=== PATIENT | female | born 1940 | race Caucasian/White ===

== ENCOUNTER 2016-07-23 16:41 | Emergency (ER) | payer OTHER ==
[2016-07-23] MEDS ORDERED: NS 1,000 ML IV ONE ×2 (17:33→19:55)
--- NOTE | 2016-07-23 17:43 | UCPHY ---
H & P Patient Type: New Chief Complaint Nursing Narrative: N/V x 4 days in a diabetic who is unable to eat or drink. AMS since this AM. Last sugar this AM was 147. Time Seen by Provider: 07/23/16 17:32 HPI/ROS: CHIEF COMPLAINT: Nausea and vomiting HISTORY OF PRESENT ILLNESS: The patient is a 75-year-old female with history of type II diabetes, who presents with 5 days of nausea and vomiting. The patient is visiting from out [place], [place]. She has been here for 2 weeks. Before she left, her was ill with some sort of illness ultimately diagnosis pneumonia. Course, she has not seen him for 2 weeks. The patient has not been able to keep down food, and very limited amounts of water. She reports an intermittent headache that comes and goes. Today she complained of chills. The patient reports productive cough that has been ongoing for quite sometime. The patient's family states the patient seems particularly run down. She is more weak compared to baseline. The patient additionally notes some left lower quadrant pain, she states she has not had a bowel movement recently, but also has had poor p.o. intake She denies fever, sweats, or urinary complaints. No diarrhea. REVIEW OF SYSTEMS: Constitutional: No fever, no chills. Eyes: No discharge. ENT: No sore throat. Cardiovascular: No chest pain, no palpitations. Respiratory: Cough, dry. No shortness of breath, or wheezing. Gastrointestinal: Nausea vomiting, no diarrhea. Genitourinary: No hematuria or frequency. Musculoskeletal: No back pain. Skin: No rashes. Neurological: No headache. 10 point ROS otherwise negative Source: Patient Exam Limitations: No limitations - Personal History Current Tetanus/Diphtheria Vaccine: Unsure (No diarrhea) - Medical/Surgical History Hx Asthma: No Hx Chronic Respiratory Disease: Yes Hx Diabetes: Yes Hx Cardiac Disease: No Hx Renal Disease: No Hx Cirrhosis: No Hx Alcoholism: No Hx HIV/AIDS: No Hx Splenectomy or Spleen Trauma: No Other PMH: Diabetes, fibromyalgia, pulmonary hypertension - Family History Significant Family History: No pertinent family hx - Social History Smoking Status: Never smoked Alcohol Use: None Drug Use: None - Physical Exam Exam: General Appearance: Alert, no distress. Afebrile. Normal phonation. No respiratory distress. Eyes: Pupils equal and round no pallor or injection. No icterus ENT, Mouth: Dry mucous membranes, No coating on mucosa, no thrush. Pharynx without erythema or exudate. TM Clear. Neck: No adenopathy. Supple. No JVD. Trachea in midline. Respiratory: Dullness left base. Diminished breath sounds at right base, without dullness. there are rales to right mid lung. Rales left lower lung anteriorly. Cardiovascular: Tachycardic, no murmurs or rubs. Abdomen: Soft mild tender to the LUQ and left abdomen, no masses, bowel sounds normal. Neurological: Ox3. No motor weakness. Sensation intact. Gait nl. The patient is oriented to person, place, date, and time and purpose, season. Skin: Warm and dry, no rashes. Musculoskeletal: No joint swelling. Extremities: No edema. Homans sign negative. No cords. Psychiatric: Normal affect. Patient is oriented X 3, there is no agitation. Constitutional: Initial Vital Signs Temperature (C) 36.3 C 07/23/16 16:55 Heart Rate 105 H 07/23/16 16:55 Respiratory Rate 18 07/23/16 16:55 Blood Pressure 158/111 H 07/23/16 16:55 O2 Sat (%) 93 07/23/16 16:55 O2 Delivery Mode Room Air Allergies/Adverse Reactions: morphine Allergy (Verified 07/23/16 16:53) Home Medications: Medication Instructions Recorded Baclofen 07/23/16 Chlorthalidone 07/23/16 Chlorzoxazone 07/23/16 Farxiga 07/23/16 Fenofibrate 07/23/16 Janumet 50-1,000 mg Tablet 07/23/16 Letairis 07/23/16 Levothyroxine 07/23/16 Lyrica 07/23/16 Montelukast Sodium 07/23/16 PRILOSEC 07/23/16 Propranolol HCl 07/23/16 Restora Capsule 07/23/16 SAVELLA 07/23/16 Spironolactone 07/23/16 Trulicity 07/23/16 Vytorin 10-10 mg Tablet 07/23/16 Medical Decision Making - Diagnostics EKG Interpretation: The 12 lead EKG was interpreted by myself. See hard copy and/or "tracemaster" electronic copy for interpretation: Nonspecific T abnormalities, V3-V6. Imaging: Imaging Impressions Chest X-Ray 07/23/16 17:32 Impression: Eventration/elevation, right hemidiaphragm. Otherwise normal.. Abdomen/Pelvis CT 07/23/16 18:28 Impression: 1. Negative non-contrast CT examination of the urinary system. 2. Minimal sigmoid diverticulosis without features of acute diverticulitis. 3. Small hiatal hernia. 4. Right renal cyst. Results called to Dr. Surya Michaud at the time of the interpretation. Attention: This CT examination is specifically designed to evaluate patients who are clinically suspected of having acute obstructive uropathy. This examination does not use radiographic contrast, and as such, provides only a limited evaluation of the abdomen, pelvis and retroperitoneum. If there is further clinical suspicion for pathological conditions other than obstructive uropathy, a complete CT evaluation of the abdomen and pelvis utilizing intravenous, oral, and rectal contrast should be considered. Films reviewed, by me on PACS ED Course/Re-evaluation: The patient is a 75-year-old female with history of type II diabetes who presents with nausea and vomiting for the past 4 days. The patient is unable to keep down POs. On exam she signs of dehydration as well as, lung findings as well as has some left lower quadrant tenderness. She has not had a bowel movement for a few days. The patient has an ongoing cough that is productive in nature. On exam patient has diminished breath sounds at the bases with rales at the mid lung. Plan to check labs for electrolyte abnormality. Chest x-ray was ordered to rule out pneumonia. IV was established, patient received fluids and Zofran. I viewed the X-ray of the chest myself on the PACS system. X-ray shows: Elevated right hemidiaphragm. No pneumonia. No cardiomegaly. Please see the full radiology report in the imaging section. I discussed findings with the patient and her family. They agree with the plan to proceed with CT. Patient has slightly elevated WBC. Her CO2 is critical at 8L. Lactic acid however was normal at 1.0. CT results were phoned to me by the radiologist, Dr. Grider. CT is negative. Please see imaging section for full report. Laboratory studies show hemoconcentration with elevated hemoglobin 9for someone from the [place] as well as urinalysis compatible with severe dehydration without any signs of infection Plan to admit the patient, family specifies Good [facility] The patient received 1000mg Tylenol PO. I spoke to the hospitalist. The patient will be directly admitted at [facility]. She was transferred there emergently via ambulance. The hospitalist requests Rocephin 1 g IV. Plan to repeat BMP and repeat lactic acid. The follow-up basic electrolytes showed the following: Potassium down to 2.6 Calcium down to 5.6 CO2 changed from 8 down to 7. The above electrolytes are evaluated after approximately 2 L of IV normal saline. Differential Diagnosis: Diagnostic considerations include, but are not limited to, the following: URI, sinusitis, pharyngitis, otitis media, pneumonia, Gastroenteritis, dehydration, diverticulitis, cholecystitis, appendicitis, gastritis, food poisoning, bacterial dysentery - Data Points Laboratory Results: Laboratory Results 07/23/16 16:56 07/23/16 20:20 07/23/16 07/23/16 07/23/16 20:20 20:20 19:13 WBC RBC Hgb Hct MCV MCH MCHC RDW Plt Count MPV Neut % (Auto) Lymph % (Auto) [place] % (Auto) Eos % (Auto) Baso % (Auto) Nucleat RBC Rel Count Absolute Neuts (auto) Absolute Lymphs (auto) Absolute Monos (auto) Absolute Eos (auto) Absolute Basos (auto) Absolute Nucleated RBC Immature Gran % Immature Gran # VBG Lactic Acid 0.7 mmol/L D mmol/L (0.7-2.1) Sodium 145 mEq/L H mEq/L (134-144) Potassium 2.6 mEq/L L* mEq/L (3.5-5.2) Chloride 117 mEq/L H D mEq/L (97-110) Carbon Dioxide 7 mEq/l L* mEq/l (22-31) Anion Gap 21 mEq/L H mEq/L (8-16) BUN 13 mg/dL mg/dL (7-23) Creatinine 0.6 mg/dL mg/dL (0.6-1.0) Estimated GFR > 60 Glucose 85 mg/dL mg/dL (70-100) POC Glucose Calcium 5.6 mg/dL L* D mg/dL (8.5-10.4) Magnesium Troponin I Lipase Beta-Hydroxybutyrate Pending Urine Color YELLOW Urine Appearance CLEAR Urine pH 5.5 (5.0-7.5) Ur Specific [place] >= 1.030 (1.002-1.030) Urine Protein 1+ H (NEGATIVE) Urine Ketones 3+ H (NEGATIVE) Urine Blood TRACE H (NEGATIVE) Urine Nitrate NEGATIVE (NEGATIVE) Urine Bilirubin NEGATIVE (NEGATIVE) Urine Urobilinogen 0.2 EU EU (0.2-1.0) Ur Leukocyte Esterase NEGATIVE (NEGATIVE) Urine RBC 3-5 /hpf H /hpf (0-3) Urine WBC NONE SEEN /hpf /hpf (0-3) Ur Epithelial Cells TRACE /lpf /lpf (NONE-1+) Calcium Oxalate Crystal PRESENT /hpf /hpf (NONE-1+) Amorphous Sediment 2+ /hpf H /hpf (NONE-1+) Urine Bacteria 1+ /hpf H /hpf (NONE SEEN) Hyaline Casts 25-50 /lpf H /lpf (0-1) Urine Mucus 1+ /lpf /lpf (NONE-1+) Urine Yeast OCCASIONAL /hpf H /hpf (NONE SEEN) Ur Culture Indicated? INDICATED H (NI) Urine Glucose 1+ H (NEGATIVE) 07/23/16 07/23/16 07/23/16 18:00 16:56 16:56 WBC 12.70 10^3/uL H 10^3/uL (3.80-9.50) RBC 5.74 10^6/uL H 10^6/uL (4.18-5.33) Hgb 15.2 g/dL g/dL (12.6-16.3) Hct 47.1 % H % (38.0-47.0) MCV 82.1 fL fL (81.5-99.8) MCH 26.5 pg L pg (27.9-34.1) MCHC 32.3 g/dL L g/dL (32.4-36.7) RDW 17.2 % H % (11.5-15.2) Plt Count 476 10^3/uL H 10^3/uL (150-400) MPV 9.9 fL fL (8.7-11.7) Neut % (Auto) 58.2 % % (39.3-74.2) Lymph % (Auto) 32.4 % % (15.0-45.0) [place] % (Auto) 7.6 % % (4.5-13.0) Eos % (Auto) 0.5 % L % (0.6-7.6) Baso % (Auto) 0.3 % % (0.3-1.7) Nucleat RBC Rel Count 0.0 % % (0.0-0.2) Absolute Neuts (auto) 7.39 10^3/uL H 10^3/uL (1.70-6.50) Absolute Lymphs (auto) 4.12 10^3/uL H 10^3/uL (1.00-3.00) Absolute Monos (auto) 0.96 10^3/uL H 10^3/uL (0.30-0.80) Absolute Eos (auto) 0.06 10^3/uL 10^3/uL (0.03-0.40) Absolute Basos (auto) 0.04 10^3/uL 10^3/uL (0.02-0.10) Absolute Nucleated RBC 0.00 10^3/uL 10^3/uL (0-0.01) Immature Gran % 1.0 % % (0.0-1.1) Immature Gran # 0.13 10^3/uL H 10^3/uL (0.00-0.10) VBG Lactic Acid 1.0 mmol/L mmol/L (0.7-2.1) Sodium 140 mEq/L mEq/L (134-144) Potassium 4.5 mEq/L mEq/L (3.5-5.2) Chloride 98 mEq/L mEq/L (97-110) Carbon Dioxide 8 mEq/l L* mEq/l (22-31) Anion Gap 34 mEq/L H mEq/L (8-16) BUN 18 mg/dL mg/dL (7-23) Creatinine 1.0 mg/dL mg/dL (0.6-1.0) Estimated GFR 54 Glucose 143 mg/dL H mg/dL (70-100) POC Glucose Calcium 10.0 mg/dL mg/dL (8.5-10.4) Magnesium 1.8 mg/dL mg/dL (1.6-2.3) Troponin I 0.013 ng/mL ng/mL (0-0.034) Lipase 151.0 IU/L IU/L (23-300) Beta-Hydroxybutyrate Urine Color Urine Appearance Urine pH Ur Specific [place] Urine Protein Urine Ketones Urine Blood Urine Nitrate Urine Bilirubin Urine Urobilinogen Ur Leukocyte Esterase Urine RBC Urine WBC Ur Epithelial Cells Calcium Oxalate Crystal Amorphous Sediment Urine Bacteria Hyaline Casts Urine Mucus Urine Yeast Ur Culture Indicated? Urine Glucose 07/23/16 16:49 WBC RBC Hgb Hct MCV MCH MCHC RDW Plt Count MPV Neut % (Auto) Lymph % (Auto) [place] % (Auto) Eos % (Auto) Baso % (Auto) Nucleat RBC Rel Count Absolute Neuts (auto) Absolute Lymphs (auto) Absolute Monos (auto) Absolute Eos (auto) Absolute Basos (auto) Absolute Nucleated RBC Immature Gran % Immature Gran # VBG Lactic Acid Sodium Potassium Chloride Carbon Dioxide Anion Gap BUN Creatinine Estimated GFR Glucose POC Glucose 156 mg/dL H mg/dL (70-100) Calcium Magnesium Troponin I Lipase Beta-Hydroxybutyrate Urine Color Urine Appearance Urine pH Ur Specific [place] Urine Protein Urine Ketones Urine Blood Urine Nitrate Urine Bilirubin Urine Urobilinogen Ur Leukocyte Esterase Urine RBC Urine WBC Ur Epithelial Cells Calcium Oxalate Crystal Amorphous Sediment Urine Bacteria Hyaline Casts Urine Mucus Urine Yeast Ur Culture Indicated? Urine Glucose Medications Given: Discontinued Medications Acetaminophen (Tylenol) 1,000 mg PO EDNOW ONE Stop: 07/23/16 19:26 Last Admin: 07/23/16 19:32 Dose: 1,000 mg Al Hydroxide/Mg Hydroxide (Maalox Susp) 30 ml PO EDNOW ONE Stop: 07/23/16 20:32 Last Admin: 07/23/16 20:51 Dose: 30 ml Sodium Chloride (Ns) 1,000 mls @ 0 mls/hr IV ONCE ONE PRN Reason: As Directed Stop: 07/23/16 17:34 Last Admin: 07/23/16 17:45 Dose: 1,000 mls Sodium Chloride (Ns) 1,000 mls @ 0 mls/hr IV ONCE ONE PRN Reason: Wide Open Stop: 07/23/16 19:56 Last Admin: 07/23/16 19:55 Dose: 1,000 mls Ceftriaxone Sodium/Dextrose (Rocephin 1 Gm (Premix)) 50 mls @ 100 mls/hr IV EDNOW ONE PRN Reason: Protocol Stop: 07/23/16 20:30 Last Admin: 07/23/16 20:10 Dose: 50 mls Point of Care Test Results: 04/16/17 16:49 POC Glucose 156 H Departure - Departure Disposition: [facility] Clinical Impression: Dehydration Nausea & vomiting Qualifiers: Vomiting type: unspecified Vomiting Intractability: non-intractable Qualified Code(s): R11.2 - Nausea with vomiting, unspecified Condition: Good Instructions: Dehydration (ED), Acute Nausea and Vomiting (ED) Additional Instructions: Recommended transfer via ambulance to the hospital. Referrals: UNK,UNK [Other] - As per Instructions - PQRS PQRS Measurement: 134: Depression screening and followup, PRIME MD-PHQ2 (12 years and older) Over the last 2 weeks, how often have you been bothered by any of the following problems? 1. Feeling down, depressed, or hopeless? 2. Little interest or pleasure in doing things? Not done because critically ill. 130: Documentation of medications. Reviewed all patient medications, doses, route and frequency. 226: Do you smoke? No. 47: 65 and older: Advanced care planning. Patient designates surrogate decision maker as parent . 51: 18 years old and older with diagnosis of COPD, spirometry performance. Spirometry not performed; equipment not available. 52: 18 years old and older with COPD and symptoms of COPD or FEV1<60% predicted prescribed a B Agonist. Spirometry not performed; equipment not available. Report Scribed for: Surya Michaud Report Scribed by: Abbey Warner Date of Report: 07/23/16 Time of Report: 17:43
[2016-07-23 17:52] LABS: ABSOLUTE IMMATURE GRANULOCYTES 0.13 10^3/uL (0.00-0.10); ADD DIFF? NO; ADD MORPH? NO; ADD SCAN? NO; ATYPICAL LYMPHOCYTE FLAG 0 (0-99); FRAGMENT RBC FLAG 0 (0-99); HEMATOCRIT 47.1 % (38.0-47.0); HEMOGLOBIN 15.2 g/dL (12.6-16.3); LEFT SHIFT FLG 0 (0-99); LIPEMIA HEMOLYSIS FLAG 80 (0-99); MEAN CELL HEMOGLOBIN 26.5 pg (27.9-34.1); MEAN CELL HEMOGLOBIN CONCENTR. 32.3 g/dL (32.4-36.7); MEAN CELL VOLUME 82.1 fL (81.5-99.8); MEAN PLATELET VOLUME 9.9 fL (8.7-11.7); PLATELET CLUMPS FLAG 0 (0-99); PLATELET COUNT 476 10^3/uL (150-400); RED BLOOD CELL COUNT 5.74 10^6/uL (4.18-5.33); RED CELL DISTRIBUTION WIDTH 17.2 % (11.5-15.2)
[2016-07-23 18:04] LABS: MAGNESIUM 1.8 mg/dL (1.6-2.3); POTASSIUM 4.5 mEq/L (3.5-5.2)
--- NOTE | 2016-07-23 18:13 | CPEKG ---
Heart Rate: 98 RR Interval: 612 P-R Interval: 204 QRSD Interval: 82 QT Interval: 376 QTC Interval: 481 P [place]: 63 QRS [place]: 29 T Wave [place]: 99 EKG Severity - ABNORMAL ECG - EKG Impression: SINUS RHYTHM EKG Impression: T biphasic in lead V2 EKG Impression: NONSPECIFIC T ABNORMALITIES, LATERAL LEADS Electronically Signed By: Surya Michaud 23-Jul-2016 23:55:09
[2016-07-23 18:15] LABS: TROPONIN I 0.013 ng/mL (0-0.034)
[2016-07-23] MEDS ORDERED: ACETAMINOPHEN 500 MG TAB PO ONE (19:25)
[2016-07-23 19:27] LABS: COLOR YELLOW; LEUKOCYTE ESTERASE,URINE NEGATIVE (NEGATIVE); NITRITE,URINE NEGATIVE (NEGATIVE); PH,URINE 5.5 (5.0-7.5)
[2016-07-23 19:43] LABS: WBC,URINE NONE SEEN /hpf (0-3)
[2016-07-23 19:44] LABS: AMORPHOUS 2+ /hpf (NONE-1+); HYALINE CASTS 25-50 /lpf (0-1)
[2016-07-23 19:46] LABS: BACTERIA 1+ /hpf (NONE SEEN); MUCUS 1+ /lpf (NONE-1+); YEAST OCCASIONAL /hpf (NONE SEEN)
[2016-07-23] MEDS ORDERED: MAG HYDROX/AL HYDROX/SIMETH 30 ML UDCUP PO ONE (20:31)
[2016-07-23 20:46] LABS: ANION GAP 21 mEq/L (8-16); CREATININE 0.6 mg/dL (0.6-1.0); GLOMERULAR FILTRATION RATE > 60; GLUCOSE 85 mg/dL (70-100); SODIUM 145 mEq/L (134-144)
[2016-07-23 21:15] LABS: CALCIUM 5.6 mg/dL (8.5-10.4); CARBON DIOXIDE 7 mEq/l (22-31); CHLORIDE 117 mEq/L (97-110); POTASSIUM 2.6 mEq/L (3.5-5.2)
[2016-07-23 22:08] VITALS: BP 152/81; PULSE 107; RESP 18; TEMP 97.5; O2SAT 96
[2016-07-24 00:16] LABS: B-HYDROXYBUTYRATE 7.97 mmol/L (0.02-0.27)
== END 2016-07-23 21:11 | disposition short-term general hospital (02) ==
LOC: CED 16:41
DX: R11.2 Nausea with vomiting, unspecified (principal); E86.0 Dehydration; E11.9 Type 2 diabetes mellitus without complications; I27.2 Other secondary pulmonary hypertension; M79.7 Fibromyalgia
CPT/HCPCS: 71020; 74176; 93005; 96361; 96365; G0463; J0696; 80048-PO; 81003-PO; 81015-PO; 82947-QW; 83605-PO; 83690-PO; 83735-PO; 84484-PO; 85025-PO; 93010-PO; 99205-PO